=== PATIENT | female | born 1960 | race Caucasian/White ===

== ENCOUNTER → 2016-09-03 | Outpatient (CLI) | payer BC ==
--- NOTE | 2016-09-03 08:11 | MM ---
Reason for exam: additional evaluation requested from prior study. Last mammogram was performed 1 year ago. History: Patient is postmenopausal, has history of breast cancer at age 48, and had first child at age 30. Benign right mammotome panel of the right breast, January 08, 2011. Reconstruction of the left breast, 2010. Saline implant in the left breast, September 2009. Chemotherapy, 2009. Mastectomy of the left breast, 2008. Reductions of both breasts, 1981. Physical Findings: Nurse did not find any significant physical abnormalities on exam. MG Diagnostic Mammo RT w CAD CC, MLO, and ML view(s) were taken of the right breast. Prior study comparison: September 01, 2015, right breast MG 3d diag mammo w/cad RT. August 26, 2014, right breast MG diagnostic mammo RT w CAD. July 28, 2013, right breast MG diagnostic mammo RT w CAD. There are scattered fibroglandular densities. Previous mammotome biopsy within the right breast. There is chronic nodularity in the right breast, just below the retroareolar plane on MLO posterior depth. No significant new findings when compared with previous films. These results were verbally communicated with the patient and result sheet given to the patient on 09/03/16. ASSESSMENT: Negative, BI-RAD 1 RECOMMENDATION: Routine screening mammogram of the right breast in 1 year.
== END | disposition home or self-care (01) ==
LOC: RADMAMWWP 06:56
PROVIDERS: ATTEND Internal Medicine Hematology & Oncology
DX: Z08 Encounter for follow-up examination after completed treatment for malignant neoplasm (principal); Z85.3 Personal history of malignant neoplasm of breast

== ENCOUNTER → 2017-04-09 | Outpatient (CLI) | payer BC ==
--- NOTE | 2017-04-09 15:50 | US ---
EXAMINATION TYPE: US venous doppler duplex LE LT DATE OF EXAM: 04/09/2017 3:33 PM COMPARISON: NONE CLINICAL HISTORY: R60.0 Edema. Left leg pain and swelling SIDE PERFORMED: Left TECHNIQUE: The lower extremity deep venous system is examined utilizing real time linear array sonog donovan with graded compression, doppler sonography and color-flow sonography. VESSELS IMAGED: External Iliac Vein (EIV) Common Femoral Vein Deep Femoral Vein Greater Saphenous Vein * Femoral Vein Popliteal Vein Small Saphenous Vein * Proximal Calf Veins (* superficial vessels) Left Leg: Appears negative for DVT Grayscale, color doppler, spectral doppler imaging performed of the deep veins of the left lower extr emity. There is normal flow, compressibility, vascular waveforms. IMPRESSION: No ultrasound evidence for acute DVT in the left lower extremity.
== END | disposition home or self-care (01) ==
LOC: RADUSMAIN 15:11
PROVIDERS: ATTEND Physician Assistant
DX: R60.0 Localized edema (principal)

== ENCOUNTER → 2017-09-13 | Outpatient (CLI) | payer BC ==
--- NOTE | 2017-09-13 09:03 | MM ---
Reason for exam: additional evaluation requested from prior study. Last mammogram was performed 1 year ago. History: Patient is postmenopausal, has history of breast cancer at age 48, and had first child at age 30. Benign right mammotome panel of the right breast, January 08, 2011. Reconstruction of the left breast, 2010. Saline implant in the left breast, September 2009. Chemotherapy, 2009. Mastectomy of the left breast, 2008. Reductions of both breasts, 1981. Physical Findings: Nurse did not find any significant physical abnormalities on exam. MG Diagnostic Mammo RT w CAD CC and MLO view(s) were taken of the right breast. Prior study comparison: September 03, 2016, right breast MG diagnostic mammo RT w CAD. September 01, 2015, right breast MG 3d diag mammo w/cad RT. There are scattered fibroglandular densities. Finding: There are typically benign dystrophic, round calcifications in the right breast. Previous mammotome biopsy in the right breast. There is a chronic nodularity in the right breast. New finding and increase in size since September 03, 2016 and September 01, 2015. These results were verbally communicated with the patient and result sheet given to the patient on 09/13/17. ASSESSMENT: Incomplete: need additional imaging evaluation, BI-RAD 0 RECOMMENDATION: Ultrasound of the right breast.
--- NOTE | 2017-09-13 09:05 | USB ---
Reason for exam: additional evaluation requested from abnormal screening. History: Patient is postmenopausal, has history of breast cancer at age 48, and had first child at age 30. Benign right mammotome panel of the right breast, January 08, 2011. Reconstruction of the left breast, 2010. Saline implant in the left breast, September 2009. Chemotherapy, 2009. Mastectomy of the left breast, 2008. Reductions of both breasts, 1981. US Breast Limited RT Right limited breast ultrasound including focal area of concern, retroareolar and axilla demonstrates no cystic or solid lesion seen. These results were verbally communicated with the patient and result sheet given to the patient on 09/13/17. ASSESSMENT: Probably benign, BI-RAD 3 RECOMMENDATION: Follow-up diagnostic mammogram of the right breast in 6 months.
== END | disposition home or self-care (01) ==
LOC: RADMAMWWP 06:57
PROVIDERS: ATTEND Internal Medicine Hematology & Oncology
DX: Z08 Encounter for follow-up examination after completed treatment for malignant neoplasm (principal); R92.8 Other abnormal and inconclusive findings on diagnostic imaging of breast; Z85.3 Personal history of malignant neoplasm of breast
CPT/HCPCS: 77065

== ENCOUNTER → 2018-05-07 | Outpatient (CLI) | payer BC ==
--- NOTE | 2018-05-07 08:11 | MM ---
Reason for exam: follow-up at short interval from prior study. Last mammogram was performed 8 months ago. History: Patient is postmenopausal, has history of breast cancer at age 48, and had first child at age 30. Benign right mammotome panel of the right breast, January 08, 2011. Reconstruction of the left breast, 2010. Saline implant in the left breast, September 2009. Chemotherapy, 2009. Mastectomy of the left breast, 2008. Reductions of both breasts, 1981. Physical Findings: Nurse did not find any significant physical abnormalities on exam. MG 3D Diag Mammo W/Cad RT CC and MLO view(s) were taken of the right breast. Prior study comparison: September 13, 2017, right breast MG diagnostic mammo RT w CAD. September 03, 2016, right breast MG diagnostic mammo RT w CAD. The breast tissue is heterogeneously dense. This may lower the sensitivity of mammography. There is a mammographically stable mass measuring 4mm on CC on 09/13/17 and CC of 05/07/18. No new suspicious abnormality. Right biopsy marker. These results were verbally communicated with the patient and result sheet given to the patient on 05/07/18. ASSESSMENT: Benign, BI-RAD 2 RECOMMENDATION: Follow-up diagnostic mammogram of the right breast in 6 months.
== END ==
LOC: RADMAMWWP 06:57
PROVIDERS: ATTEND Internal Medicine Hematology & Oncology
DX: R92.8 Other abnormal and inconclusive findings on diagnostic imaging of breast (principal); Z80.3 Family history of malignant neoplasm of breast
CPT/HCPCS: 77061; 77065

== ENCOUNTER → 2018-11-10 | Outpatient (CLI) | payer BC ==
--- NOTE | 2018-11-10 08:54 | MM ---
Reason for exam: follow-up at short interval from prior study. Last mammogram was performed 6 months ago. History: Patient is postmenopausal, has history of breast cancer at age 48, and had first child at age 30. Benign right mammotome panel of the right breast, January 08, 2011. Reconstruction of the left breast, 2010. Saline implant in the left breast, September 2009. Chemotherapy, 2009. Mastectomy of the left breast, 2008. Reductions of both breasts, 1981. Physical Findings: Nurse did not find any significant physical abnormalities on exam. MG 3D Diag Mammo W/Cad RT CC and MLO view(s) were taken of the right breast. Prior study comparison: May 07, 2018, right breast MG 3d diag mammo w/cad RT. September 13, 2017, right breast MG diagnostic mammo RT w CAD. There are scattered fibroglandular densities. 5.5mm nodule 3-4 o'clock versus 4.5mm on 05/07/18. Additional chronic medial nodualrity. Additional short interval follow up recommended. These results were verbally communicated with the patient and result sheet given to the patient on 11/10/18. ASSESSMENT: Probably benign, BI-RAD 3 RECOMMENDATION: Follow-up diagnostic mammogram of the right breast in 6 months. (right total 1 year follow up)
== END | disposition home or self-care (01) ==
LOC: RADMAMWWP 07:01
PROVIDERS: ATTEND Internal Medicine Hematology & Oncology
DX: R92.8 Other abnormal and inconclusive findings on diagnostic imaging of breast (principal); Z85.3 Personal history of malignant neoplasm of breast
CPT/HCPCS: 77061; 77065

== ENCOUNTER → 2019-08-04 | Outpatient (CLI) | payer BC ==
--- NOTE | 2019-08-04 09:47 | MM ---
Reason for exam: follow-up at short interval from prior study. Last mammogram was performed 9 months ago. History: Patient is postmenopausal, has history of breast cancer at age 48, and had first child at age 30. Benign right mammotome panel of the right breast, January 08, 2011. Reconstruction of the left breast, 2010. Saline implant in the left breast, September 2009. Chemotherapy, 2009. Mastectomy of the left breast, 2008. Reductions of both breasts, 1981. Physical Findings: Nurse did not find any significant physical abnormalities on exam. MG 3D Diag Mammo W/Cad RT CC and MLO view(s) were taken of the right breast. Prior study comparison: November 10, 2018, right breast MG 3d diag mammo w/cad RT. May 07, 2018, right breast MG 3d diag mammo w/cad RT. The breast tissue is heterogeneously dense. This may lower the sensitivity of mammography. Benign appearing calcifications in the right breast. Right biopsy marker noted. These results were verbally communicated with the patient and result sheet given to the patient on 08/04/19. ASSESSMENT: Benign, BI-RAD 2 RECOMMENDATION: Follow-up diagnostic mammogram of the right breast in 1 year.
== END | disposition home or self-care (01) ==
LOC: RADMAMWWP 07:31
PROVIDERS: ATTEND Internal Medicine Hematology & Oncology
DX: R92.8 Other abnormal and inconclusive findings on diagnostic imaging of breast (principal); Z85.3 Personal history of malignant neoplasm of breast
CPT/HCPCS: 77061; 77065

== ENCOUNTER → 2020-02-16 | Outpatient (CLI) | payer BC ==
--- NOTE | 2020-02-16 14:08 | XR ---
EXAMINATION TYPE: XR chest 2V DATE OF EXAM: 02/16/2020 COMPARISON: Prior chest x-ray 03/17/2009 HISTORY: J 20.9, chest pressure and cough TECHNIQUE: Frontal and lateral views of the chest are obtained. FINDINGS: Probable left breast prosthesis is in place, multiple surgical clips are present, there is increased attenuation over the lower left chest. No evident pneumothorax or pleural effusion. Cardia c mediastinal silhouette, pulmonary vascularity and abhishek are stable. No airspace disease. Lungs show a stable appearance. Bones are unchanged. Port-A-Cath has been removed. IMPRESSION: No acute cardiopulmonary process.
== END | disposition home or self-care (01) ==
LOC: RADXRMAIN 12:15
PROVIDERS: ATTEND Nurse Practitioner
DX: J20.9 Acute bronchitis, unspecified (principal)
CPT/HCPCS: 71046

== ENCOUNTER → 2020-03-03 | Outpatient (CLI) | payer BC | END | disposition home or self-care (01) | LOC: LABWHC1 12:56 | PROVIDERS: ATTEND Nurse Practitioner | DX: Z03.89 Encounter for observation for other suspected diseases and conditions ruled out (principal) | CPT/HCPCS: U0003; C9803 ==

== ENCOUNTER → 2020-08-04 | Outpatient (CLI) | payer BC ==
--- NOTE | 2020-08-04 11:33 | MM ---
Reason for exam: additional evaluation requested from prior study. Last mammogram was performed 1 year ago. History: Patient is postmenopausal, has history of breast cancer at age 48, and had first child at age 30. Benign right mammotome panel of the right breast, January 08, 2011. Reconstruction of the left breast, 2010. Saline implant in the left breast, September 2009. Chemotherapy, 2009. Mastectomy of the left breast, 2008. Reductions of both breasts, 1981. Physical Findings: Nurse did not find any significant physical abnormalities on exam. MG 3D Diag Mammo W/Cad RT CC and MLO view(s) were taken of the right breast. Prior study comparison: August 04, 2019, right breast MG 3d diag mammo w/cad RT. November 10, 2018, right breast MG 3d diag mammo w/cad RT. Previous mammotome biopsy in the right breast. There is chronic nodularity in the right breast. No significant new findings when compared with previous films. These results were verbally communicated with the patient and result sheet given to the patient on 08/04/20. ASSESSMENT: Benign, BI-RAD 2 RECOMMENDATION: Follow-up diagnostic mammogram of the right breast in 1 year.
== END | disposition home or self-care (01) ==
LOC: RADMAMWWP 10:17
PROVIDERS: ATTEND Family Medicine
DX: R92.8 Other abnormal and inconclusive findings on diagnostic imaging of breast (principal); Z85.3 Personal history of malignant neoplasm of breast; Z78.0 Asymptomatic menopausal state
CPT/HCPCS: 77061; 77065

== ENCOUNTER → 2021-07-26 | Outpatient (CLI) | payer BC ==
--- NOTE | 2021-07-26 14:54 | MM ---
Reason for Exam: Additional evaluation requested from prior study. Last screening mammogram was performed 12 month(s) ago. Patient History: Menarche at age 13. First Full-Term at age 30. Late child-bearing (after 30). Postmenopausal. Breast cancer, left, age 48. 2008, Mastectomy on the Left side. 1981, Bilateral Reduction. 01/08/2011, Benign Core Biopsy on the right side. 2009, Chemotherapy. 09/2009, Implant on the left side. 2010, Implant on the left side. Prior Study Comparison: 11/10/2018 Right Diagnostic Mammogram, [facility]. 08/04/2019 Right Diagnostic Mammogram, [facility]. 08/04/2020 Right Diagnostic Mammogram, [facility]. Tissue Density: Right: There are scattered fibroglandular densities. Findings: Analyzed By CAD. Benign-appearing calcifications seen. Previous biopsy marker noted. Overall Assessment: Benign, BI-RAD 2 Management: Screening Mammogram of both breasts in 1 year. A clinical breast exam by your physician is recommended on an annual basis and results should be correlated with mammographic findings. This exam should not preclude additional follow-up of suspicious palpable abnormalities. Results were given to the patient verbally at the time of exam. Electronically signed and approved by: Marv Stauffer M.D. Radiologis
== END | disposition home or self-care (01) ==
LOC: RADMAMWWP 06:54
PROVIDERS: ATTEND Family Medicine
DX: R92.1 Mammographic calcification found on diagnostic imaging of breast (principal); Z78.0 Asymptomatic menopausal state; Z90.13 Acquired absence of bilateral breasts and nipples
CPT/HCPCS: 77061; 77065

== ENCOUNTER → 2021-11-23 | Outpatient (CLI) | payer BC ==
[~2021-11-23] MED LIST: SODIUM CHLORIDE 0.9% 500 ML 500 ML in EMPTY BAG 1 BAG IV PRN; ZOLEDRONIC ACID 5 MG in SODIUM CHLORIDE 0.9% 100 ML IV NR
[2021-11-23 09:29] VITALS: BP 124/60; PULSE 74; RESP 15; TEMP 97.9
== END ==
LOC: PROCWHC3 09:09
PROVIDERS: ATTEND Family Medicine
DX: M81.0 Age-related osteoporosis without current pathological fracture (principal)
CPT/HCPCS: 96365; J3489

== ENCOUNTER → 2022-10-18 | Outpatient (CLI) | payer BC ==
--- NOTE | 2022-10-19 10:07 | MM ---
Reason for Exam: Screening (asymptomatic). Last mammogram was performed 1 year(s) and 2 month(s) ago. Patient History: Menarche at age 13. First Full-Term at age 30. Late child-bearing (after 30). Postmenopausal. Patient has history of breast feeding. Breast cancer, left, age 48. Previous chemotherapy at age 48. 2008, Mastectomy on the Left side. 1981, Bilateral Reduction. 01/08/2011, Benign Core Biopsy on the right side. 2009, Chemotherapy. 09/2009, Implant on the left side. 2010, Implant on the left side. Prior Study Comparison: 08/04/2019 Right Diagnostic Mammogram, [facility]. 08/04/2020 Right Diagnostic Mammogram, [facility]. 07/26/2021 Right MG 3D diag mammo w/cad RT, [facility]. Tissue Density: Right: The breast tissue is almost entirely fat. Findings: Analyzed By CAD. Right breast biopsy clip. There is no suspicious group of microcalcifications or new suspicious mass in either breast. Overall Assessment: Benign, BI-RAD 2 Management: Screening Mammogram of both breasts in [address] [facility] will attempt to contact patient to return for supplemental views and ultrasound if indicated. Patient should continue monthly self-breast exams. A clinical breast exam by your physician is recommended on an annual basis. This exam should not preclude additional follow-up of suspicious palpable abnormalities. Note on Beverley scores and lifetime risk: 1. A Beverley score greater than 3% is considered moderate risk. If this is the case, consider specialist referral to assess eligibility for a risk reducing agent. 2. If overall lifetime risk for the development of breast cancer is 20% or higher, the patient may qualify for future screening with alternating mammogram and breast MRI. Electronically signed and approved by: Wu Marmolejo DO
== END | disposition home or self-care (01) ==
LOC: RADMAMWWP 07:00
PROVIDERS: ATTEND Obstetrics & Gynecology
DX: Z12.31 Encounter for screening mammogram for malignant neoplasm of breast (principal); Z78.0 Asymptomatic menopausal state; Z85.3 Personal history of malignant neoplasm of breast; Z98.82 Breast implant status
CPT/HCPCS: 77067

== ENCOUNTER → 2022-12-06 | Outpatient (CLI) | payer BC ==
--- NOTE | 2022-12-06 12:49 | BD ---
EXAMINATION TYPE: Axial Bone Density DATE OF EXAM: 12/06/2022 CLINICAL HISTORY: 62 years old Female. ICD-10 CODE: Z78.0 asymptomatic menopausal state Height: 64 Weight: 117 FRAX RISK QUESTIONS: Family History (Parent hip fracture): no History of Fracture in Adulthood: no Secondary Osteoporosis: no RISK FACTORS HISTORY OF: Family History of Osteoporosis: yes, mother & mat grandma Active: yes Diet low in dairy products/other sources of calcium: no Postmenopausal woman: yes Lost more than 2 inches in height since high school: no Frequent falls: no Poor Health: no MEDICATIONS: Osteoporosis Medications: yes Which medication: Reclast How Lon+ years Additional Medications: yes calcium, vit d EXAM MEASUREMENTS: Bone mineral densitometry was performed using the [employer] System. Bone mineral density as measured about the Lumbar spine is: ----- L1-L4(G/cm2): 0.775 T Score Values are as follows: ----- L1: -3.4 ----- L2: -3.8 ----- L3: -3.0 ----- L4: -3.5 ----- L1-L4: -3.4 Z Score Values are as follows: ----- L1: -1.5 ----- L2: -1.9 ----- L3: -1.0 ----- L4: -1.6 ----- L1-L4: -1.4 Bone mineral density baseline Bone mineral density about the R hip (g/cm2): 0.696 Bone mineral density about the L hip (g/cm2): 0.709 T Score values are as follows: -----R Neck: -2.6 -----L Neck: -2.5 -----R Total: -2.5 -----L Total: -2.3 Z Score values are as follows: -----R Neck: -0.9 -----L Neck: -0.8 -----R Total: -1.0 -----L Total: -0.8 Bone mineral density baseline FRAX%s: The graph provided illustrates a 12.4% chance for a major osteoporotic fx and a 3.1% chance f or the hips probability for fx in 10 years time. IMPRESSION: Osteoporosis (T Score less than -2.5). There is increased fracture risk and therapy is usually indicated based on age. Re-Screen 1-2 years. NOTE: T-SCORE=SD OF THE YOUNG ADULT MEAN.
== END | disposition home or self-care (01) ==
LOC: RADBDWWP 11:10
PROVIDERS: ATTEND Family Medicine
DX: M81.0 Age-related osteoporosis without current pathological fracture (principal); Z78.0 Asymptomatic menopausal state
CPT/HCPCS: 77080

== ENCOUNTER → 2023-02-07 | Outpatient (CLI) | payer BC ==
--- NOTE | 2023-02-08 08:30 | XR ---
EXAMINATION TYPE: XR lumbosacral spine min 4V DATE OF EXAM: 02/07/2023 5:44 PM CLINICAL INDICATION:Female, 63 years old with history of M54.50; [facility] COMPARISON: None TECHNIQUE: XR lumbosacral spine min 4V - Frontal, lateral , bilateral oblique and coned in L5-S1 late ral views of the spine. FINDINGS: Mild compression deformity of the vertebral body heights at multiple levels. No acute frac tures definitively visualized. No evidence of loss of vertebral body height is seen. There is normal alignment of the lumbar vertebral bodies. Mild scattered disc space narrowing. Multilevel marginal os teophyte formation throughout the visualized spine. There is facet joint arthropathy throughout the s pine. Scattered at least mild neural foraminal stenosis, evaluation limited due to technique. IMPRESSION: 1. No acute fracture. 2. Moderate multilevel disc degeneration.
== END | disposition home or self-care (01) ==
LOC: RADXRMAIN 17:09
PROVIDERS: ATTEND Nurse Practitioner Family
DX: M51.37 Other intervertebral disc degeneration, lumbosacral region (principal)
CPT/HCPCS: 72110

== ENCOUNTER → 2023-02-11 | Outpatient (CLI) | payer BC ==
[2023-02-11 12:42] VITALS: BP 127/76; PULSE 78; RESP 16; TEMP 98.2
== END ==
LOC: PROCWHC3 12:12
PROVIDERS: ATTEND Family Medicine
DX: M81.0 Age-related osteoporosis without current pathological fracture (principal)
CPT/HCPCS: 96365; J3489

== ENCOUNTER → 2023-10-25 | Outpatient (CLI) | payer BC ==
--- NOTE | 2023-10-29 14:23 | MM ---
Reason for Exam: Hx of breast cancer, mastectomy. Last screening mammogram was performed 12 month(s) ago. Patient History: Menarche at age 13. First Full-Term at age 30. Late child-bearing (after 30). Postmenopausal. Patient has history of breast feeding. Breast cancer, left, age 48. Previous chest radiation therapy. Previous chemotherapy at age 48. 2008, Mastectomy on the Left side. 1981, Bilateral Reduction. 01/08/2011, Benign Core Biopsy on the right side. 2009, Chemotherapy. 09/2009, Implant on the left side. 2010, Implant on the left side. Prior Study Comparison: 09/13/2017 Right Diagnostic Mammogram, [facility]. 05/07/2018 Right Diagnostic Mammogram, [facility]. 11/10/2018 Right Diagnostic Mammogram, [facility]. 08/04/2019 Right Diagnostic Mammogram, [facility]. 08/04/2020 Right Diagnostic Mammogram, [facility]. 07/26/2021 Right MG 3D diag mammo w/cad RT, [facility]. 10/18/2022 Right Screening 3D/Tomosynthesis, [facility]. Tissue Density: Right: The breasts are almost entirely fatty. Findings: Right breast biopsy clip. Right breast: There is no suspicious group of microcalcifications or new suspicious mass. Benign-appearing calcifications right breast. Overall Assessment: Benign, BI-RAD 2 Management: Screening Mammogram of both breasts in [address] [facility] will attempt to contact patient to return for supplemental views and ultrasound if indicated. Patient should continue monthly self-breast exams. A clinical breast exam by your physician is recommended on an annual basis. This exam should not preclude additional follow-up of suspicious palpable abnormalities. Note on Beverley scores and lifetime risk: 1. A Beverley score greater than 3% is considered moderate risk. If this is the case, consider specialist referral to assess eligibility for a risk reducing agent. 2. If overall lifetime risk for the development of breast cancer is 20% or higher, the patient may qualify for future screening with alternating mammogram and breast MRI. Electronically signed and approved by: Wu Marmolejo DO
== END | disposition home or self-care (01) ==
LOC: RADMAMWWP 11:01
PROVIDERS: ATTEND Family Medicine
DX: Z12.31 Encounter for screening mammogram for malignant neoplasm of breast
CPT/HCPCS: 77067

== ENCOUNTER → 2023-11-08 | Outpatient (CLI) | payer BC ==
[2023-11-08 15:17] LABS: HCT 38.7 % (37.2-46.3); HGB 13.3 g/dL (12.0-15.0); MCH 32.4 pg (27.0-32.0); MCHC 34.4 g/dL (32.0-37.0); MCV 94.2 FL (80.0-97.0); Mean Platelet Volume 11.3 FL (9.5-12.2); NRBC Per 100 WBC 0 X 10*3/uL (0.00-0.01); Platelet Count 238 X 10*3/uL (140-440); RBC 4.11 X 10*6/uL (4.10-5.20); WBC 4.32 X 10*3/uL (4.50-10.00)
== END | disposition home or self-care (01) ==
LOC: LABWHC1 11:03
PROVIDERS: ATTEND Family Medicine
DX: D72.819 Decreased white blood cell count, unspecified (principal)
CPT/HCPCS: 36415; 85027

== ENCOUNTER → 2024-03-20 | Outpatient (CLI) | payer MEDICARE ==
[~2024-03-20] MED LIST changes: +SODIUM CHLORIDE 0.9% 250 ML in EMPTY BAG 1 BAG IV PRN; -SODIUM CHLORIDE 0.9% 500 ML 500 ML in EMPTY BAG 1 BAG IV PRN; -ZOLEDRONIC ACID 5 MG in SODIUM CHLORIDE 0.9% 100 ML IV NR
[2024-03-20 13:45] VITALS: BP 116/70; PULSE 80; RESP 16; TEMP 97.7
[2024-03-20] MEDS: SODIUM CHLORIDE 0.9% 500 ML 500 ML in EMPTY BAG 1 BAG IV PRN (13:45)
[2024-03-20] MEDS: ZOLEDRONIC ACID 5 MG in SODIUM CHLORIDE 0.9% 100 ML IV NR (13:46)
== END ==
LOC: PROCWHC3 13:29
PROVIDERS: ATTEND Family Medicine
DX: M81.0 Age-related osteoporosis without current pathological fracture (principal)
CPT/HCPCS: 96365; J3489